=== PATIENT | male | born 1935 | race Caucasian/White ===

== ENCOUNTER 2019-04-23 16:50 | Emergency (ER) | payer OTHER ==
[~2019-04-23] VITALS: Ht 172.7 cm; Wt 74.4 kg
--- NOTE | 2019-04-23 16:50 | NUR ---
Pt biba taken to bed 4
[2019-04-23 16:51] VITALS: BP 146/82
--- NOTE | 2019-04-23 17:04 | NUR ---
PT C/O FACIAL BURNING X2 DAYS. STAFF AT [facility] NOTED A FLUSHED FACE AND YELLOW DISCHARGE WEEPING FROM FACE 40 MIN AGO. NO BLISTERS TO FACE. NO N/V/D. PT STATES HE HAS NOT TAKEN ANY NEW MEDICATIONS. PT SITTING IN BED, RELAXED. AIRWAY NOT COMPROMISED. MEDHX: BIPOLAR, SCHIZOPHRENIA, GERD, HYPERLIPIDEMIA, HTN, COPD, ANEMIA ALLERGIES: DENIES
[2019-04-23] MEDS ORDERED: KETOROLAC 60 MG/2 ML VIAL IM ONE (17:05)
--- NOTE | 2019-04-23 17:42 | NUR ---
X-RAY COMPLETED AT BEDSIDE
--- NOTE | 2019-04-23 18:31 | NUR ---
PT RESTING IN BED W/ EYES CLOSED
--- NOTE | 2019-04-23 19:26 | NUR ---
TRANSFER OF CARE AND REPORT GIVEN FROM [facility]
--- NOTE | 2019-04-23 19:46 | NUR ---
Patient discharged with v/s stable. Written and verbal after care instructions given and explained. Patient alert, oriented and verbalized understanding of instructions. Wheel Chair Assisted with to PT BROTHER'S car. All questions addressed prior to discharge. ID band removed. Patient advised to follow up with PMD. Rx of MOTRIN AND BENADRYL WAS given. Patient educated on indication of medication including possible reaction and side effects. Opportunity to ask questions provided and answered.
[2019-04-23 19:48] VITALS: BP 103/58
== END 2019-04-23 19:46 | disposition home or self-care (01) ==
LOC: MED 16:50
DX: T20.10XA Burn of first degree of head, face, and neck, unspecified site, initial encounter (principal); X08.8XXA Exposure to other specified smoke, fire and flames, initial encounter; Y93.89 Activity, other specified; Y92.89 Other specified places as the place of occurrence of the external cause; Y99.8 Other external cause status
CPT/HCPCS: 71045; 96372; 99283; J1885; Q0092

== ENCOUNTER 2021-04-12 20:28 | Emergency (ER) | payer OTHER ==
[~2021-04-12] VITALS: Ht 185.4 cm; Wt 83.9 kg
[~2021-04-12 20:28] MED LIST: ALBU0.0912 IH; APIX2.5 PO; AZIT250T3 PO; DEC4 PO; DONE10TA10 PO; DOXA2TAB1 PO; FLUT1POW3 IH; MULT-2112 PO; MUPI2CRE22 TP; SENN-72 PO; SIMV10TA1 PO; SPIMDI INH; SYN.05 PO
--- NOTE | 2021-04-12 20:28 | NUR ---
PT CHIKIS BLS. TAKEN TO BED 2
[2021-04-12 20:30] VITALS: BP 122/68
--- NOTE | 2021-04-12 20:41 | NUR ---
85 Y/O MALE PT CHIKIS FROM [facility] C/O A FALL AT 4AM IN TH MORNING. EMS STATES, "PER THE FACILITY HE HAS AN UNWITNESSED FALL AT 4AM IN THE MORNING. PT HAS A BRUISE ON THE RT EYE." DENIES N/V/D; SKIN IS PINK/WARM/DRY; AAOX4 WITH EVEN AND STEADY GAIT; LUNGS CLEAR BL; HR EVEN AND REGULAR; PT DENIES ANY FEVER, CP, SOB, OR COUGH AT THIS TIME; PATIENT STATES PAIN OF 0/10 AT THIS TIME; VSS; PATIENT POSITIONED FOR COMFORT; HOB ELEVATED; BEDRAILS UP X2; BED DOWN. ER MD MADE AWARE OF PT STATUS. PMH: DEMENTIA, HTN, HLD, NKA
--- NOTE | 2021-04-12 22:56 | NUR ---
REPOSITIONED FOR COMFORT, PT. LAYING IN SUPINE POSITION. VOICES NO COMPLAINTS AT THIS TIME. HR EVEN AND REGULAR.
--- NOTE | 2021-04-13 04:52 | NUR ---
Patient appears to be resting comfortably in bed. Vital Signs within normal limits. Respirations even and unlabored.
--- NOTE | 2021-04-13 07:23 | NUR ---
GIVEN REPORT TO ALEXA CALDERON, FOR CONTINUITY OF CARE
--- NOTE | 2021-04-13 08:30 | NUR ---
PT RESTING WITH EYES CLOSED, BREATHING EVEN AND UNLABORED. NO DISTRESS NOTED.
--- NOTE | 2021-04-13 09:35 | NUR ---
CALLED MABEL REGARDING PT PICKUP - STATES HE WILL BE HERE AROUND 11AM
[2021-04-13 11:30] VITALS: BP 116/61
--- NOTE | 2021-04-13 11:30 | NUR ---
Patient discharged with v/s stable. Written and verbal after care instructions about head injury given and explained. Patient verbalized understanding. Ambulatory with steady gait. All questions addressed prior to discharge. Advised to follow up with PMD.
== END 2021-04-13 11:30 | disposition home or self-care (01) ==
LOC: MED 20:28
DX: S09.90XA Unspecified injury of head, initial encounter (principal); F03.90 Unspecified dementia, unspecified severity, without behavioral disturbance, psychotic disturbance, mood disturbance, and anxiety; W19.XXXA Unspecified fall, initial encounter; Y93.89 Activity, other specified; Y92.89 Other specified places as the place of occurrence of the external cause; Y99.8 Other external cause status; J44.9 Chronic obstructive pulmonary disease, unspecified; K21.9 Gastro-esophageal reflux disease without esophagitis; Z79.899 Other long term (current) drug therapy; I10 Essential (primary) hypertension
CPT/HCPCS: 70450; 70486; 72125; 99285

== ENCOUNTER 2022-08-06 21:57 | Inpatient (IN) | payer OTHER ==
[~2022-08-06] VITALS: Ht 172.7 cm; Wt 68.0 kg
[~2022-08-06 21:57] MED LIST changes: +SIMV-371 PO; -SIMV10TA1 PO
--- NOTE | 2022-08-06 21:59 | NUR ---
PT CHIKIS LARAS. TAKEN TO BED 4
[2022-08-06 22:06] VITALS: BP 120/76
--- NOTE | 2022-08-06 22:30 | NUR ---
Patient lying in bed, A/Ox3, chest rise and fall symmetrical, no s/s of distress.
--- NOTE | 2022-08-06 22:42 | NUR ---
X-Ray at bedside.
[2022-08-06 22:48] LABS: BASOPHILS # (AUTO) 0.1 K/uL (0.00-0.22); BASOPHILS % (AUTO) 0.5 % (0.0-2.0); EOSINOPHILS # (AUTO) 0.1 K/uL (0-0.4); EOSINOPHILS % (AUTO) 0.8 % (0.0-4.0); HEMATOCRIT 42.7 % (36-52); HEMOGLOBIN 14.1 g/dL (12.0-18.0); LYMPHOCYTES # (AUTO) 0.9 K/uL (2.0-11.5); LYMPHOCYTES % (AUTO) 6.1 % (20.5-51.1); MEAN CORPUSCULAR HEMOGLOBIN 30 pg (27-31); MEAN CORPUSCULAR HGB CONC 33 g/dL (33-37); MEAN CORPUSCULAR VOLUME 92.1 fL (80-94); MONOCYTES # (AUTO) 1.6 K/uL (0.8-1.0); MONOCYTES % (AUTO) 10.6 % (1.7-9.3); NEUTROPHILS # (AUTO) 12.3 K/uL (1.8-7.7); PLATELET COUNT (AUTO) 158 K/uL (140-450); RED BLOOD CELL COUNT(AUTO) 4.64 MIL/uL (4.20-6.10); RED CELL DISTRIBUTION WIDTH 13.6 % (11.6-13.7)
[2022-08-06 23:10] LABS: ALBUMIN 2.8 g/dL (3.4-5.0); ANION GAP 8.5 (8-16); ASPARTATE AMINOTRANSFERASE 24 U/L (15-37); CARBON DIOXIDE 33.4 mmol/L (21-32); CHLORIDE 105 mmol/L (98-107); CREATININE 1.2 mg/dL (0.6-1.3); GLUCOSE 139 mg/dL (74-106); POTASSIUM 3.9 mmol/L (3.5-5.1); SODIUM SERUM 143 mmol/L (136-145); TOTAL BILIRUBIN 0.9 mg/dL (0.0-1.0); UREA NITROGEN, BLOOD 30 mg/dL (7-18)
[2022-08-06 23:14] LABS: LIPASE 109 U/L (73-393)
--- NOTE | 2022-08-06 23:37 | NUR ---
Dr. Warren examining patient.
[2022-08-06] MEDS ORDERED: MORPHINE SULFATE 4 MG/ML SYR IVP ONE (23:50)
[2022-08-06] MEDS ORDERED: LIDOCAINE 5% 1 EA PATCH TP ONE (23:55)
--- NOTE | 2022-08-07 00:05 | NUR ---
Patient lying in bed, A/Ox3, chest rise and fall symmetrical, no s/s of distress.
[2022-08-07] MEDS ORDERED: NACL 0.9% 1,000 ML IV SCH (00:15)
--- NOTE | 2022-08-07 00:16 | NUR ---
PT RETURN FROM RADIOLOGY
--- NOTE | 2022-08-07 00:20 | NUR ---
Patient lying in bed, A/Ox4, chest rise and fall symmetrical, no s/s of distress. Addendum: 08/07/22 at 0230 by [email or web address] Patient lying in bed, A/Ox3, chest rise and fall symmetrical, no s/s of distress.
--- NOTE | 2022-08-07 02:15 | NUR ---
Patient lying in bed, A/Ox3, chest rise and fall symmetrical, no s/s of distress.
--- NOTE | 2022-08-07 02:31 | NUR ---
Patient will be admitted to care of Quita CALDERON. Admited to Telemetry. Will go to room 107A. Belongings list completed. Report to Quita CALDERON, Quita CALDERON verbalized understanding of report, no further questions.
--- NOTE | 2022-08-07 02:43 | NUR ---
RECEIVED ENDORSEMENT FROM DAY SHIFT NURSE FOR CONTINUITY OF CARE. PT CAME IN VIA GURNEY WITH MUSICAL INSTRUMENT MAKER OR REPAIRER ESCORT. PT IS AWAKE, ALERT AND CONFUSE. PT WITH CHIEF COMPLAINTS OF LEFT INFERIOR CHEST WALL PAIN WITH SOB, DIAGNOSIS OF COPD. PT HAS HISTORY NOF DEMENTIA, COPD, ANEMIA, HYPOTHYROIDISM, HTN AND HYPOLIPIDEMIA. NO KNOWN ALLERGY. PT IS FULL CODE. PT IS ON ROOM AIR AND IS ON REGULAR DIET. IV SITE IS RAC 18G, INFUSING WELL OF NS 100ML/HR. SKIN NINTACT, NO SKIN PROBLEM. PT IS TELEMETRY.
[2022-08-07 04:00] VITALS: BP 117/57
--- NOTE | 2022-08-07 04:10 | NUR ---
PT IS CONFUSE, PT ANSWER QUESTION WITH NOT CONNECTED ANSWER. PT IS STILL AWAKE. ENCOURAGE PT TO SLEEP. REPOSITIONED PT TO A COMFORTABLE SITE.
--- NOTE | 2022-08-07 05:30 | NUR ---
PT IS ASLEEP. NO SOB OR DISTRESS.
--- NOTE | 2022-08-07 07:00 | NUR ---
PT IS SLEEPING AND IS ON STABLE CONDITION. ALL SAFETY MEASURES ARE IN PLACE. WILL ENDORSE TO DAY SHIFT NURSE FOR CONTINUITY OF CARE.
[2022-08-07 08:00] VITALS: BP 115/61
[2022-08-07] MEDS ORDERED: DOCUSATE SODIUM 100 MG GELCAP PO PRN (08:10)
[2022-08-07] MEDS ORDERED: ACETAMINOPHEN 325 MG TAB PO PRN (08:10)
[2022-08-07] MEDS ORDERED: guaiFENesin DM 200/20 MG-10 ML 10 ML UDC PO PRN (08:10)
[2022-08-07] MEDS ORDERED: POTASSIUM CHLORIDE 10 MEQ TABER PO PRN (08:10)
[2022-08-07] MEDS ORDERED: ONDANSETRON 4 MG/2 ML VIAL IM/IVP PRN (08:10)
[2022-08-07] MEDS: NACL 0.9% 1,000 ML IV SCH (08:35)
[2022-08-07] MEDS: PANTOPRAZOLE 40 MG TABEC PO SCH (08:43)
[2022-08-07 10:10] LABS: CHOL/HDL RATIO 1.7 (1-4.5); FREE T4 (FREE THYROXINE) 1.29 ng/dL (0.76-1.46); MAGNESIUM 1.8 mg/dL (1.8-2.4); PHOSPHORUS 2.8 mg/dL (2.5-4.9); THYROID STIMULATING HORMONE 1.63 uIU/mL (0.34-3.74)
[2022-08-07 10:16] LABS: PROTHROMBIN TIME 10.6 secs (10.8-13.4)
[2022-08-07] MEDS: PIPERACILLIN/TAZOBACTAM 3.375 GM in DEXTROSE 5% 50 ML IV SCH ×2 (11:49→17:35)
[2022-08-07 12:00] VITALS: BP 124/69
[2022-08-07 16:00] VITALS: BP 116/74
[2022-08-07 20:00] VITALS: BP 125/66
[2022-08-07 20:16] LABS: APPEARANCE,URINE SL CLOUDY (CLEAR); BILIRUBIN,URINE 1+ (NEGATIVE); BLOOD, URINE 3+ (NEGATIVE); COLOR,URINE RED (YELLOW); LEUKOCYTE ESTERASE ,URINE TRACE (NEGATIVE); NITRITE, URINE POSITIVE (NEGATIVE); PH,URINE 5.5 (5.0-9.0); UGLUCOSE NEGATIVE (NEGATIVE)
[2022-08-07 20:25] LABS: RBC,URINE 20-50 /HPF (0-5)
[2022-08-07 20:26] LABS: OTHER CASTS, URINE None Seen /LPF (None Seen)
[2022-08-07] MEDS: SIMVASTATIN 10 MG TAB PO SCH (21:16)
--- NOTE | 2022-08-07 21:17 | NUR ---
ADMINISTERED SCHEDULED MEDICATION. TOLERATED WELL.
[2022-08-08] VITALS: BP 120/60
[2022-08-08] MEDS: PIPERACILLIN/TAZOBACTAM 3.375 GM in DEXTROSE 5% 50 ML IV SCH ×5 (00:36→23:44)
[2022-08-08] MEDS: ZOLPIDEM 5 MG TAB PO PRN ×2 (00:42→20:55)
[2022-08-08] MEDS: NACL 0.9% 1,000 ML IV SCH ×2 (00:50→18:02)
[2022-08-08] MEDS: HYDROcodone/APAP 7.5/325 MG 1 TAB PO PRN ×2 (05:33→16:34)
[2022-08-08] MEDS: LEVOTHYROXINE 0.05 MG TAB PO SCH (05:33)
[2022-08-08 06:28] LABS: BASOPHILS % (AUTO) 0.4 % (0.0-2.0); EOSINOPHILS # (AUTO) 0.7 K/uL (0-0.4); EOSINOPHILS % (AUTO) 5.9 % (0.0-4.0); HEMATOCRIT 40.5 % (36-52); HEMOGLOBIN 13.3 g/dL (12.0-18.0); LYMPHOCYTES # (AUTO) 1.3 K/uL (2.0-11.5); LYMPHOCYTES % (AUTO) 11.1 % (20.5-51.1); MEAN CORPUSCULAR HEMOGLOBIN 31 pg (27-31); MEAN CORPUSCULAR HGB CONC 33 g/dL (33-37); MEAN CORPUSCULAR VOLUME 92.7 fL (80-94); MONOCYTES # (AUTO) 1.5 K/uL (0.8-1.0); MONOCYTES % (AUTO) 13.1 % (1.7-9.3); NEUTROPHILS # (AUTO) 8.2 K/uL (1.8-7.7); NEUTROPHILS % (AUTO) 69.5 % (42.2-75.2); PLATELET COUNT (AUTO) 153 K/uL (140-450); RED BLOOD CELL COUNT(AUTO) 4.37 MIL/uL (4.20-6.10); RED CELL DISTRIBUTION WIDTH 13.8 % (11.6-13.7); WHITE BLOOD COUNT (AUTO) 11.8 K/uL (4.8-10.8)
[2022-08-08 06:45] LABS: ANION GAP 10.6 (8-16); CARBON DIOXIDE 31.5 mmol/L (21-32); CHLORIDE 106 mmol/L (98-107); CREATININE 1.2 mg/dL (0.6-1.3); GLUCOSE 103 mg/dL (74-106); POTASSIUM 4.1 mmol/L (3.5-5.1); SODIUM SERUM 144 mmol/L (136-145); UREA NITROGEN, BLOOD 24 mg/dL (7-18)
--- NOTE | 2022-08-08 07:23 | NUR ---
GAVE REPORT TO DAY SHIFT NURSE FOR CONTINUITY OF CARE.
--- NOTE | 2022-08-08 07:24 | NUR ---
RECEIVED REPORT FROM CLEANING STAFF SUPERVISOR NURSE SOHAIL FOR CONTINUITY OF CARE. PT SLEEPING, EASILY AROUSABLE BY VERBAL STIMULI. RESPIRATIONS EVEN AND UNLABORED ON 2L NC. NO DISTRESS NOTED. CALL LIGHT WITHIN REACH. SAFETY PRECAUTIONS IN PLACE.
--- NOTE | 2022-08-08 07:54 | NUR ---
ENDORSED PT TO RN ADZE. PT IS STABLE.
[2022-08-08 08:00] VITALS: BP 123/55
[2022-08-08 08:07] LABS: T4 (THYROXINE) 8.6 ug/dL (4.5-12.0)
[2022-08-08] MEDS: PANTOPRAZOLE 40 MG TABEC PO SCH (09:55)
--- NOTE | 2022-08-08 12:10 | NUR ---
PATIENT HAS BEEN SCREENED AND CATEGORIZED MODERATE NUTRITION RISK. PATIENT WILL BE SEEN WITHIN 3-5 DAYS OF ADMISSION. 08/10/2212/21/[address]
[2022-08-08 16:00] VITALS: BP 119/61
--- NOTE | 2022-08-08 19:25 | NUR ---
RECEIVED PATIENT IN BED RESTING COMFORTABLY WITH O2 AT 4L NC SATING 93%. NO DISTRESS. DENIES PAIN. IVF NS INFUSING AT 60 ML/HR. ALL SAFETY MEASURES IN PLACE. CALL LIGHT WITHIN REACH.
[2022-08-08] MEDS: SIMVASTATIN 10 MG TAB PO SCH (20:19)
--- NOTE | 2022-08-08 20:19 | NUR ---
ADMINISTERED SCHEDULED MEDICATION. WELL TOLERATED.
--- NOTE | 2022-08-08 23:44 | NUR ---
ZOSYN ADMINISTERED SCHEDULED.
[2022-08-09] VITALS: BP 121/58
[2022-08-09] MEDS: HYDROcodone/APAP 7.5/325 MG 1 TAB PO PRN (03:35)
--- NOTE | 2022-08-09 03:35 | NUR ---
COMPLAINED OF MODERATE PAIN, MEDICATED WITH NORCO PRN.
[2022-08-09] MEDS: PIPERACILLIN/TAZOBACTAM 3.375 GM in DEXTROSE 5% 50 ML IV SCH ×4 (05:26→23:42)
[2022-08-09] MEDS: LEVOTHYROXINE 0.05 MG TAB PO SCH (06:30)
[2022-08-09 07:15] LABS: BASOPHILS # (AUTO) 0.1 K/uL (0.00-0.22); BASOPHILS % (AUTO) 0.6 % (0.0-2.0); EOSINOPHILS # (AUTO) 0.7 K/uL (0-0.4); HEMOGLOBIN 12.4 g/dL (12.0-18.0); LYMPHOCYTES # (AUTO) 1.3 K/uL (2.0-11.5); LYMPHOCYTES % (AUTO) 12.5 % (20.5-51.1); MEAN CORPUSCULAR HEMOGLOBIN 31 pg (27-31); MEAN CORPUSCULAR HGB CONC 34 g/dL (33-37); MEAN CORPUSCULAR VOLUME 92.7 fL (80-94); MONOCYTES # (AUTO) 1.2 K/uL (0.8-1.0); NEUTROPHILS # (AUTO) 7.3 K/uL (1.8-7.7); NEUTROPHILS % (AUTO) 68.9 % (42.2-75.2); PLATELET COUNT (AUTO) 144 K/uL (140-450); RED BLOOD CELL COUNT(AUTO) 3.99 MIL/uL (4.20-6.10); RED CELL DISTRIBUTION WIDTH 13.4 % (11.6-13.7); WHITE BLOOD COUNT (AUTO) 10.5 K/uL (4.8-10.8)
--- NOTE | 2022-08-09 07:28 | NUR ---
ENDORSED PATIENT TO DAY SHIFT NURSE MELE FOR CONTINUITY OF CARE.
[2022-08-09 07:36] LABS: ANION GAP 12.2 (8-16); CARBON DIOXIDE 28.8 mmol/L (21-32); CHLORIDE 107 mmol/L (98-107); CREATININE 1.2 mg/dL (0.6-1.3); GLUCOSE 86 mg/dL (74-106); SODIUM SERUM 144 mmol/L (136-145); UREA NITROGEN, BLOOD 24 mg/dL (7-18)
--- NOTE | 2022-08-09 07:36 | NUR ---
GOT REPORT FROM THE NIGHT NURSE, PT SLEEPING,IV IS INFUSING ORDERED.NO SOB. [id number]
[2022-08-09] MEDS: PANTOPRAZOLE 40 MG TABEC PO SCH (08:22)
[2022-08-09] MEDS: MORPHINE SULFATE 2 MG/ML SYR IVP PRN ×3 (08:53→17:01)
[2022-08-09 09:41] VITALS: BP 134/56
[2022-08-09] MEDS: NACL 0.9% 1,000 ML IV SCH (10:45)
--- NOTE | 2022-08-09 11:12 | NUR ---
PT FOUND ON 4 L O2 SAT WAS 98 %. DECREASED FLOW TO 2 LPM. THERE IS NO ORDER FOR OXYGEN SO WILL HAVE ONE PUT IN. SPOKE WITH NURSE. SHE HAD INCREASED TO 4 L BECAUSE SAT WAS 91%. 91% FOR A COPD PT IS OK AND 98% IS TOO HIGH, HENCE THE DECREASE TO 2 L. PT WAS AWAKE AND ABLE TO COMMUNICATE. HE WAS A BIT CONFUSED. PATIENT WAS RESTING COMFORTABLY AND NO DISTRESS WAS NOTED. HE SAID HE HAD NO SOB.
--- NOTE | 2022-08-09 11:48 | NUR ---
ADDED ORDER FOR O2 SINCE PT STATED ON 2L OXYGEN AT HOME.
[2022-08-09 16:00] VITALS: BP 134/56
--- NOTE | 2022-08-09 19:30 | NUR ---
RECEIVED REPORT FROM DAY SHIFT NURSE MELE FOR CONTINUITY OF CARE. PT AWAKE, SITTING IN BED. RESPIRATIONS EVEN AND UNLABORED ON 2L NC. NO DISTRESS NOTED. NO C/O OF PAIN. SKIN INTACT, WARM AND DRY TO TOUCH. IV SITE ON LFA 20G, INFUSING IVF. CALL LIGHT WITHIN REACH. SAFETY PRECAUTIONS IN PLACE.
--- NOTE | 2022-08-09 20:00 | NUR ---
Patient's Plan of Care was discussed and reviewed with XIOMARA LEWIS
[2022-08-09] MEDS: SIMVASTATIN 10 MG TAB PO SCH (21:03)
--- NOTE | 2022-08-09 21:05 | NUR ---
ADMINISTERED DUE MEDS. PT TOLERATED WELL.
--- NOTE | 2022-08-09 23:49 | NUR ---
ADMINISTERED 0000 MEDICATION ZOSYN IVPB. IVPB STARTED SUCCESSFULLY WITHOUT ANY ISSUES. BEFORE ADMINISTRATION, DISCUSSED PATIENT'S CARE WITH XIOMARA LEWIS TO ENSURE PATIENT'S A&O STATUS AND IV ACCESS. PATIENT WAS AWAKE WHEN I ENTERED THE ROOM. EXPLAINED TO THE PATIENT THAT I WAS ADMINISTERING AN ANTIBIOTIC TO FIGHT OFF INFECTION VIA IV, AND ASKED IF HE HAD ANY QUESTIONS. THE PATIENT SAID HE HAD NO QUESTIONS AND GAVE ME PERMISSION TO START IVPB. I EXPLAINED TO THE PATIENT THAT THE ANTIBIOTIC SHOULD RUN FOR ABOUT 30 MINUTES. HE SAID THAT WAS FINE. PATIENT LYING IN SEMI-FOWLERS POSITION. BREATHING WAS NORMAL WITH SYMMETRICAL RISE AND FALL OF CHEST. WILL CONTINUE TO OBSERVE PATIENT.
[2022-08-10] VITALS: BP 133/61
[2022-08-10] MEDS: NACL 0.9% 1,000 ML IV SCH ×2 (01:22→19:30)
--- NOTE | 2022-08-10 03:19 | NUR ---
PT SLEEPING. NO DISTRESS NOTED WITH VISIBLE RISE AND CHEST FALL. SAFETY PRECAUTIONS IN PLACE.
[2022-08-10] MEDS: PIPERACILLIN/TAZOBACTAM 3.375 GM in DEXTROSE 5% 50 ML IV SCH ×4 (05:20→23:19)
--- NOTE | 2022-08-10 05:26 | NUR ---
ADMINISTERED 0600 MEDICATION ZOSYN IVPB. IVPB STARTED SUCCESSFULLY WITHOUT ANY ISSUES. PATIENT WAS AWAKE WHEN I ENTERED THE ROOM. INFORMED PATIENT THAT I WAS ADMINISTERING ANOTHER ANTIBIOTIC VIA HIS IV AND THAT IT SHOULD TAKE ABOUT 30 MINUTES TO RUN. PATIENT SAID OKAY. PATIENT'S BREATHING WAS NORMAL WITH SYMMETRICAL RISE AND FALL OF CHEST. WILL CONTINUE TO OBSERVE PATIENT.
[2022-08-10] MEDS: LEVOTHYROXINE 0.05 MG TAB PO SCH (05:58)
[2022-08-10] MEDS: HYDROcodone/APAP 7.5/325 MG 1 TAB PO PRN (06:45)
--- NOTE | 2022-08-10 06:47 | NUR ---
WAS INFORMED BY XIOMARA BERKOWITZ THAT PATIENT IS IN PAIN AND IS REQUESTING PAIN MEDICATION. PATIENT'S BP WAS 151/64 AND HR WAS 44. DECIDED NOT TO ADMINISTER MORPHINE DUE TO PATIENT'S HR. CHECKED PATIENT'S CHART AND SAW HE HAD NORCO ON FILE. ADMINISTERED NORCO TO PATIENT. PATIENT TOLERATED WELL. INFORMED HEMATOLOGY ONCOLOGY CONSULTANT THAT NORCO WAS GIVEN, AND ASKED HER TO INFORM DAY SHIFT NURSE TO KEEP AN EYE ON THE PATIENT'S HR.
--- NOTE | 2022-08-10 06:51 | NUR ---
NOTED BLOOD IN THE URINE WHEN DIAPER WAS CHANGED. PT STATED NO PAIN WHEN URINATING. DR. KERR MADE AWARE. AWAITING FOR RESPONSE. WILL ENDORSE TO DAY SHIFT NURSE.
--- NOTE | 2022-08-10 07:04 | NUR ---
GAVE BEDSIDE REPORT TO DAY SHIFT RN MELE FOR CONTINUITY OF CARE. ENDORSED TO FOLLOW UP WITH MD REGARDING BLOOD IN THE URINE. MD WAS INFORMED BUT NO RESPONSE YET AT THIS TIME. ALL NEEDS MET THROUGHOUT SHIFT. PT IS STABLE.
[2022-08-10 07:18] LABS: ANION GAP 8.5 (8-16); CARBON DIOXIDE 28.7 mmol/L (21-32); CHLORIDE 105 mmol/L (98-107); CREATININE 1.1 mg/dL (0.6-1.3); GLUCOSE 80 mg/dL (74-106); POTASSIUM 4.2 mmol/L (3.5-5.1); SODIUM SERUM 138 mmol/L (136-145); UREA NITROGEN, BLOOD 19 mg/dL (7-18)
[2022-08-10 07:23] LABS: BASOPHILS # (AUTO) 0.1 K/uL (0.00-0.22); BASOPHILS % (AUTO) 0.7 % (0.0-2.0); EOSINOPHILS # (AUTO) 0.7 K/uL (0-0.4); EOSINOPHILS % (AUTO) 6.8 % (0.0-4.0); HEMATOCRIT 40.2 % (36-52); HEMOGLOBIN 13.5 g/dL (12.0-18.0); LYMPHOCYTES # (AUTO) 1.2 K/uL (2.0-11.5); LYMPHOCYTES % (AUTO) 11.1 % (20.5-51.1); MEAN CORPUSCULAR HEMOGLOBIN 31 pg (27-31); MEAN CORPUSCULAR HGB CONC 34 g/dL (33-37); MEAN CORPUSCULAR VOLUME 92.1 fL (80-94); MONOCYTES # (AUTO) 1.2 K/uL (0.8-1.0); MONOCYTES % (AUTO) 11.2 % (1.7-9.3); NEUTROPHILS # (AUTO) 7.6 K/uL (1.8-7.7); NEUTROPHILS % (AUTO) 70.2 % (42.2-75.2); PLATELET COUNT (AUTO) 170 K/uL (140-450); RED BLOOD CELL COUNT(AUTO) 4.37 MIL/uL (4.20-6.10); RED CELL DISTRIBUTION WIDTH 13.3 % (11.6-13.7); WHITE BLOOD COUNT (AUTO) 10.8 K/uL (4.8-10.8)
--- NOTE | 2022-08-10 07:39 | NUR ---
GOT REPORT FROM THE NIGHT NURSE PT IS AWAKE DISCUSSED POC.[id number]
[2022-08-10 08:00] VITALS: BP 148/92
[2022-08-10] MEDS: PANTOPRAZOLE 40 MG TABEC PO SCH (08:44)
[2022-08-10] MEDS ORDERED: AMOX-999 PO (10:08)
[2022-08-10] MEDS: MORPHINE SULFATE 2 MG/ML SYR IVP PRN ×3 (15:39→21:24)
--- NOTE | 2022-08-10 15:55 | NUR ---
FLY CATHETER INSERTED WA MD ORDER. BLOODY URINE COMING OUT IN THE COUCH BAG.[id number]
[2022-08-10 16:00] VITALS: BP 130/66
--- NOTE | 2022-08-10 16:20 | NUR ---
FLUSHED THE CATHETER WITH NS UNTIL IT IS CLEAR. WILL CONTINUE TO MONITOR.[id number]
--- NOTE | 2022-08-10 17:25 | NUR ---
DC PLANNING: PATIENT HAS A DC ORDER TO GO BACK TO [facility] FAXED ALL PAPER WORK SPOKE WITH JODI PT CAN GO TO ROOM 7B # TO GIVE REPORT [phone] ARRANGED TRANSPORT WITH [facility]. AWAITING FOR ETA CM TO FOLLOW Addendum: 08/10/22 at 1735 by Erin Lloyd RN DC PLANNING: PER MELE CALDERONOSTEOPATHY DOCTOR CANCELED BECAUSE OF ACTIVE BLEEDING. CM TO FOLLOW Addendum: 08/12/22 at 1209 by Erin Lloyd RN DC PLANNING: [facility] THE DC ORDER [facility] AWAIT[facility] FOR BED NUMBER. CM TO FOLLOW
--- NOTE | 2022-08-10 17:45 | NUR ---
FLASHED AGAIN THE CATHETER UNTIL THE BLOOD CLEAR OUT. MONITORING PT FOR ANY DISCOMFORT AND ANY CHANGE.[id number]
--- NOTE | 2022-08-10 19:30 | NUR ---
RECEIVED REPORT FROM DAY SHIFT NURSE MELE FOR CONTINUITY OF CARE. PT AWAKE IN BED. ON 2L NC. NO C/O OF PAIN AT THIS TIME. NO DISTRESS NOTED. PT WITH COUCH CATHETER, INTACT, DRAINING BLOODY URINE WITH CLOTS. WILL CONTINUE FLUSHING WITH NS UNTIL URINE IS CLEAR. CALL LIGHT WITHIN REACH. SAFETY PRECAUTIONS IN PLACE.
--- NOTE | 2022-08-10 19:55 | NUR ---
Patient's Plan of Care was discussed and reviewed with WOO SOLANO, CALL LIGHT IS WITHIN THE REACH, WILL CONTINUE TO MONITOR PATIENT.
[2022-08-10 20:00] VITALS: BP 123/57
[2022-08-10] MEDS: SIMVASTATIN 10 MG TAB PO SCH (20:30)
--- NOTE | 2022-08-10 20:30 | NUR ---
DUE MED ADMINISTERED. PT TOLERATED WELL.
--- NOTE | 2022-08-10 21:27 | NUR ---
PATIENT IS COMPLAINING OF PAIN ,GAVE IV MEDICATION PRN, VITAL SIGN IS WITHIN THE NORMAL RANGE, WILL CONTINUE TO MONITOR PATIENT.
--- NOTE | 2022-08-10 22:08 | NUR ---
COUCH CATHETER IRRIGATED. BLOOD CLOTS AND BRIGHT RED BLOOD IRRIGATED. PT WAS SO SENSITIVE, COMPLAINING OF PAIN.
--- NOTE | 2022-08-11 01:15 | NUR ---
IRRIGATED PT'S COUCH CATHETER. DRAINED BRIGHT RED WITH BLOOD CLOTS URINE. WILL INFORM MD. PT CLOSELY MONITORED.
[2022-08-11 04:00] VITALS: BP 109/56
--- NOTE | 2022-08-11 04:02 | NUR ---
IRRIGATED COUCH CATHETER. STILL HAVE A LOT OF BLOOD CLOTS AND BRIGHT RED BLOOD. PT COMPLAINING OF PAIN.
[2022-08-11] MEDS: PIPERACILLIN/TAZOBACTAM 3.375 GM in DEXTROSE 5% 50 ML IV SCH ×4 (05:16→23:33)
[2022-08-11] MEDS: LEVOTHYROXINE 0.05 MG TAB PO SCH (05:38)
--- NOTE | 2022-08-11 07:12 | NUR ---
GAVE BEDSIDE REPORT TO DAY SHIFT RN JUSTYN FOR CONTINUITY OF CARE. ALL NEEDS MET THROUGHOUT SHIFT. PT IS STABLE.
[2022-08-11 07:29] LABS: BASOPHILS # (AUTO) 0.1 K/uL (0.00-0.22); BASOPHILS % (AUTO) 0.5 % (0.0-2.0); EOSINOPHILS # (AUTO) 0.8 K/uL (0-0.4); EOSINOPHILS % (AUTO) 8.1 % (0.0-4.0); HEMATOCRIT 36.4 % (36-52); HEMOGLOBIN 12.3 g/dL (12.0-18.0); LYMPHOCYTES # (AUTO) 1.1 K/uL (2.0-11.5); LYMPHOCYTES % (AUTO) 10.4 % (20.5-51.1); MEAN CORPUSCULAR HEMOGLOBIN 31 pg (27-31); MEAN CORPUSCULAR HGB CONC 34 g/dL (33-37); MEAN CORPUSCULAR VOLUME 91.6 fL (80-94); MONOCYTES # (AUTO) 1.1 K/uL (0.8-1.0); NEUTROPHILS # (AUTO) 7.3 K/uL (1.8-7.7); PLATELET COUNT (AUTO) 156 K/uL (140-450); RED BLOOD CELL COUNT(AUTO) 3.98 MIL/uL (4.20-6.10); RED CELL DISTRIBUTION WIDTH 13.2 % (11.6-13.7); WHITE BLOOD COUNT (AUTO) 10.4 K/uL (4.8-10.8)
--- NOTE | 2022-08-11 07:56 | NUR ---
NURSES NOTE V RECEIVED PATIENT ON BED SIDE , A/OX3 , VSS , ON ROOM AIR , ON REGULAR DIET , WITH COUCH CATHETER COMPLAIN OF PAIN , HE NEED PAIN MEDS , WILL CONTINUE OBSERVE .
[2022-08-11 08:27] LABS: ANION GAP 11.2 (8-16); CARBON DIOXIDE 28.9 mmol/L (21-32); CHLORIDE 106 mmol/L (98-107); CREATININE 1.3 mg/dL (0.6-1.3); GLUCOSE 93 mg/dL (74-106); POTASSIUM 4.1 mmol/L (3.5-5.1); SODIUM SERUM 142 mmol/L (136-145); UREA NITROGEN, BLOOD 19 mg/dL (7-18)
[2022-08-11] MEDS: PANTOPRAZOLE 40 MG TABEC PO SCH (08:53)
[2022-08-11 09:53] VITALS: BP 120/57
[2022-08-11] MEDS: NACL 0.9% 1,000 ML IV SCH (11:36)
--- NOTE | 2022-08-11 12:00 | NUR ---
DISCHARGE PLANNING PATIENT IS AN 86 YEAR OLD MALE ADMITTED TO THE [facility]/ED ON 08/07/2022 DUE TO RIB, FRACTURE AND SHORTNESS OF BREATH. SW MEET WITH PATIENT AT BEDSIDE TO DISCUSS AND GATHER HIS COLLATERAL INFORMATION. PATIENT WAS AWAKE AND ALERT ABLE TO PROVIDE HIS OWN INFORMATION. PER PATIENT HE IS BEEN IN [facility] SINCE 02/09/2020 AND HAS NO A.D. IN PLACE, PATIENT DECLINED ALL INF.FORMS PROVIDED BY SW; REPORTED HAVING HIS BROTHER MABEL HOBBS HIS EMERGENCY CONTACT. PER PATIENT HE HAS BEEN CARE WELL IN SNF FACILITY AND WILL LIKE TO RETURN TO [facility] WHEN HE IS READY AND STABLE FOR DISCHARGE. SW THANKED PATIENT FOR THE INFORMATION PROVIDED AND ENDED THE MEETING. SW CALL [facility] AT SPOKE TO HOLLY FROM ADMINISTRATION TO DISCUSS AND CONFIRM PATIENT'S INFORMATION. PER HOLLY PATIENT IS BEEN IN THE SNF SINCE 02/09/2020 UNDER [facility] BED AND HE HAS ALL NEEDED CARE FROM FACILITY UNDER THE CARE OF MD. JEREMIAS QUAN. PATIENT IS ABLE TO RETURN TO THE FACILITY WHEN HE IS READY AND STABLE TO DISCHARGE. WILLIAM THANKED SNF/STAFF HOLLY FOR THE INFORMATION AND ENDED THE CALL. SW/SHANE WILL FOLLOW UP NEEDED.
--- NOTE | 2022-08-11 13:23 | NUR ---
NURSES NOTE I CALL AFTER RESULT OF US , HE SAID CHANGE THE COUCH CATHETER I CHANGE IT UNIN JOSE JUANAM MORE CLEAR THAN THE FIRST COUCH , DR AWARE THEY ORDER NEW US FOR HIM .
--- NOTE | 2022-08-11 16:10 | NUR ---
NURSES NOTE PATIENT A/OX4 , VSS , LEGAL BLIND ,ANURIC , NO BOWEL MOVEMENT , STILL WAITING FOR TRANSPORTATION TO PICKED HER UP TO TRANSFER TO SNF , STILL UNDER OBSERVE .
--- NOTE | 2022-08-11 16:10 | NUR ---
NURSES NOTE PATIENT A/OX2 , HE FORGETFUL , VSS , ON IV FLUID N/S RUINING 60CC/H , WITH COUCH CATHETER SKIN REDNESS ON SACRAL ARIA OPTIFORM APPLIED , NO COMPLAIN , WAITING TO DO US PELVIC TO CONFIRMED COUCH CATHETER PLACEMENT , STILL UNDER OBSERVE
[2022-08-11 16:47] VITALS: BP 157/67
--- NOTE | 2022-08-11 18:49 | NUR ---
AFTER THE US RESULT I SPOOK WITH DR KEHINDE TREVINO , HE SAID REMOVED THE COUCH AND REPLACE IT , THEN I REPLACE THE COUCH , KEEP UNDER OBSERVE .
--- NOTE | 2022-08-11 19:10 | NUR ---
REPORT GIVEN TO DARLING RN ADDRESS TO OBSERVE OUT PUT AND COUCH CATHETER ALL HER QUESTION ANSWER .
--- NOTE | 2022-08-11 19:11 | NUR ---
RECEIVED REPORT FROM MORNING SHIFT NURSE. PT IS LYING ON THE BED, BEDREST AND AOX2. PT IS ON 2L NC AND ON REGULAR DIET. PT HAS COUCH CATHETER AND HAS IV ON LEFT FOREARM GAUGE 22 RUNNING WITH NS AT 50ML/HR. PT SKIN IS INTACT BUT THERE'S REDNESS ON BUTTOCKS. PT DENIES PAIN AT THIS TIME. NO S/S OF RESPIRATORY DISTRESS NOTED. ALL SAFETY MEASURES IMPLEMENTED. BED IN LOW POSITION, BED WHEELS ON LOCK AND CALL LIGHT WITHIN REACH.
--- NOTE | 2022-08-11 19:46 | NUR ---
NOTIFIED DR. BATES IF HE WANTS TO CONTINUE THE ZOSYN AFTER THE DOSE DUE ON [address] BATES ORDER TO CONTINUE. ORDER WAS MADE AND CARRIED OUT.
[2022-08-11] MEDS: ALBUTEROL SULFATE/IPRATROPIU 3 ML SOL IH PRN ×2 (19:50→20:04)
[2022-08-11] MEDS: SIMVASTATIN 10 MG TAB PO SCH (20:20)
--- NOTE | 2022-08-11 20:20 | NUR ---
SCHEDULED AND PRESCRIBED MEDICATION WAS GIVEN TO PT PER MD ORDER. ALL SAFETY MEASURES IMPLEMENTED. BED IN LOW POSITION, BED WHEELS ON LOCK AND CALL LIGHT WITHIN REACH.
--- NOTE | 2022-08-11 22:00 | NUR ---
PT WAS GIVEN WARM BLANKET. PT DENIES PAIN AT THIS TIME. NO S/S OF RESPIRATORY DISTRESS NOTED. ALL SAFETY MEASURES IMPLEMENTED. BED IN LOW POSITION, BED WHEELS ON LOCK AND CALL LIGHT WITHIN REACH.
[2022-08-12] VITALS: BP 122/80
[2022-08-12] MEDS ORDERED: PIPERACILLIN/TAZOBACTAM 3.375 GM in DEXTROSE 5% 50 ML IV SCH ×2
--- NOTE | 2022-08-12 | NUR ---
PT IS ON SLEEP. CHEST RISE AND FALL SYMMETRICALLY NOTED. RESPIRATION IS EVEN AND UNLABORED. ALL SAFETY MEASURES IMPLEMENTED. BED IN LOW POSITION, BED WHEELS ON LOCK AND CALL LIGHT WITHIN REACH.
--- NOTE | 2022-08-12 02:00 | NUR ---
CHECKED THE PT, STILL ON SLEEP. CHEAT RISE AND FALL SYMMETRICALLY NOTED. RESPIRATION IS EVEN AND UNLABORED. ALL SAFETY MEASURES IMPLEMENTED. BED IN LOW POSITION, BED WHEELS ON LOCK AND CALL LIGHT WITHIN REACH.
--- NOTE | 2022-08-12 04:00 | NUR ---
MORNING CARE WAS DONE TO PT. CHANGED GOWN AND LINENS. ALL SAFETY MEASURES IMPLEMENTED. BED IN LOW POSITION, BED WHEELS ON LOCK AND CALL LIGHT WITHIN REACH.
[2022-08-12] MEDS: MORPHINE SULFATE 2 MG/ML SYR IVP PRN (04:34)
--- NOTE | 2022-08-12 04:34 | NUR ---
PT WAS GIVEN PRN PAIN MEDICATION DUE TO LEFT HIP PAIN WITH THE PAIN SCALE OF 7/10. ALL SAFETY MEASURES IMPLEMENTED. BED IN LOW POSITION, BED WHEELS ON LOCK AND CALL LIGHT WITHIN REACH.
[2022-08-12] MEDS: NACL 0.9% 1,000 ML IV SCH (04:50)
[2022-08-12] MEDS: PIPERACILLIN/TAZOBACTAM 3.375 GM in DEXTROSE 5% 50 ML IV SCH ×3 (05:36→17:33)
[2022-08-12] MEDS: LEVOTHYROXINE 0.05 MG TAB PO SCH (05:36)
--- NOTE | 2022-08-12 07:11 | NUR ---
PT IS STABLE. ENDORSED PT TO THE MORNING SHIFT NURSE FOR CONTINUITY OF CARE.
--- NOTE | 2022-08-12 07:15 | NUR ---
nurses note received patient at bed side , A/OX2 , vss ,with jackson catheter , safety on place , no complain at this time bed rest , on regular diet , still under observe .
[2022-08-12 08:16] LABS: BASOPHILS # (AUTO) 0.1 K/uL (0.00-0.22); BASOPHILS % (AUTO) 0.7 % (0.0-2.0); EOSINOPHILS # (AUTO) 0.8 K/uL (0-0.4); EOSINOPHILS % (AUTO) 8.8 % (0.0-4.0); HEMATOCRIT 35.1 % (36-52); HEMOGLOBIN 11.9 g/dL (12.0-18.0); LYMPHOCYTES # (AUTO) 1.2 K/uL (2.0-11.5); LYMPHOCYTES % (AUTO) 13.2 % (20.5-51.1); MEAN CORPUSCULAR HEMOGLOBIN 31 pg (27-31); MEAN CORPUSCULAR HGB CONC 34 g/dL (33-37); MEAN CORPUSCULAR VOLUME 91.8 fL (80-94); MONOCYTES # (AUTO) 1.1 K/uL (0.8-1.0); MONOCYTES % (AUTO) 12.3 % (1.7-9.3); PLATELET COUNT (AUTO) 157 K/uL (140-450); RED BLOOD CELL COUNT(AUTO) 3.83 MIL/uL (4.20-6.10); RED CELL DISTRIBUTION WIDTH 13.5 % (11.6-13.7); WHITE BLOOD COUNT (AUTO) 9.3 K/uL (4.8-10.8)
[2022-08-12 08:25] LABS: ANION GAP 11.7 (8-16); CARBON DIOXIDE 27.3 mmol/L (21-32); CHLORIDE 106 mmol/L (98-107); CREATININE 1.1 mg/dL (0.6-1.3); SODIUM SERUM 141 mmol/L (136-145); UREA NITROGEN, BLOOD 20 mg/dL (7-18)
[2022-08-12 08:36] LABS: GLUCOSE 85 mg/dL (74-106)
[2022-08-12] MEDS: PANTOPRAZOLE 40 MG TABEC PO SCH (08:51)
[2022-08-12 09:28] VITALS: BP 131/79
--- NOTE | 2022-08-12 11:20 | NUR ---
nurses note patient has discharge order , bladder scan done no ruin retention zero amount as bladder scan .
--- NOTE | 2022-08-12 11:37 | NUR ---
nurses note i called [facility] i give report to Kelsey CALDERON THEN I CALLED HIS BROTHER , MABEL ON HIS # [phone] TO INFORMED HIM PT HAS DISCHARGE ORDER HE CAN TRANSFER TO FACILITY , HE DON,T ANSWER , I LEFT MASSAGE FOR HIM AND THE PHONE NUMBER .
--- NOTE | 2022-08-12 12:47 | NUR ---
NURSES NOTE PATIENT A/OX3 , VSS , ON ROOM AIR , INCONTINENT, SKIN INTACT ON STANDER ISOLATION NO COMPLAIN AT THIS TIME ,SAFETY ON PLACE , BED IN LOWER POSITION , CALL LIGHT WITHIN REACH SIDE RAILS UP X3 , ON BED REST , ON REGULAR DIET ,HE CAN BR DISCHARGE TODAY , STILL UNDER OBSERVE .
--- NOTE | 2022-08-12 13:56 | NUR ---
DC PLANNING PT ACCEPTED TO ROOM 7B, FOLLOWING DR. DR HAMILTON, CALL REPORT NUMBER [phone]. [facility] REQUEST FORM FAXED TO [facility], . SW TO FOLLOW Addendum: 08/12/22 at 1546 by Abimael HANNA FIELDED CALL FROM HERMINIO WITH [facility]. HERMINIO REPORTS TRANSPORTATION ARRANGED WITH [facility] [phone], OPERATOR PREFINISH TIME 430PM, AUTH [id number]. ENDORSED TO PT NURSE.
--- NOTE | 2022-08-12 15:52 | NUR ---
PHYSICAL THERAPY CO-SIGN The Physical Therapy Progress Notes documented by Data Services Developer have been reviewed. Reviewed/Co-Signed by: Olive Ortiz Documentation Done by: LONI FITCH PTA Addendum: 08/12/22 at 1552 by Olive Ortiz PT Amended: Links added.
[2022-08-12 16:00] VITALS: BP 123/69
--- NOTE | 2022-08-12 16:12 | NUR ---
08/12/22 RD INITIAL ASSESSMENT COMPLETED PLEASE REFER TO NUTRITION ASSESSMENT UNDER CARE ACTIVITY FOR ESTIMATED NUTRITIONAL NEEDS. 1. CONTINUE REGULAR DIET TOLERATED 2. RECOMMEND ENSURE 1XDAY TO HELP INCREASE PO INTAKE -ENSURE 1XDAY PROVIDES 350 KCALS AND [address] TO FOLLOW-UP 3-5 DAYS, MODERATE RISK REVIEWED BY ANGEL OLIVER RD
--- NOTE | 2022-08-12 18:26 | NUR ---
NURSES NOTE PATIENT DISCHARGE NOW TO [facility] , IV REMOVED AND ARM BAND , VSS , ALL HIS DOCUMENT SIGN AND PLACE ON CHART , DISCHARGE PACKET EXPLAIN FOR HIM AND HIS BROTHER , VERBALIZED UNDERSTANDING OF GIVEN AND PICKED UP NOW BY EMS .
== END 2022-08-12 18:30 | DRG 871 ==
LOC: MED 21:57 → MTU 08-07 00:16
PROVIDERS: ADMIT Family Medicine; ATTEND Family Medicine
PROC: 0T9B70Z Drainage of Bladder with Drainage Device, Via Natural or Artificial Opening (ICD-10-PCS; principal; 2022-08-10)
DX: A41.9 Sepsis, unspecified organism (principal); E43 Unspecified severe protein-calorie malnutrition; J69.0 Pneumonitis due to inhalation of food and vomit; J96.01 Acute respiratory failure with hypoxia; S22.32XA Fracture of one rib, left side, initial encounter for closed fracture; J44.0 Chronic obstructive pulmonary disease with (acute) lower respiratory infection; F17.200 Nicotine dependence, unspecified, uncomplicated; Z20.822 Contact with and (suspected) exposure to COVID-19; E03.9 Hypothyroidism, unspecified; I10 Essential (primary) hypertension; F03.90 Unspecified dementia, unspecified severity, without behavioral disturbance, psychotic disturbance, mood disturbance, and anxiety; E78.5 Hyperlipidemia, unspecified; D64.9 Anemia, unspecified; Z68.22 Body mass index [BMI] 22.0-22.9, adult; T83.018A Breakdown (mechanical) of other urinary catheter, initial encounter; Y83.9 Surgical procedure, unspecified as the cause of abnormal reaction of the patient, or of later complication, without mention of misadventure at the time of the procedure; Y92.89 Other specified places as the place of occurrence of the external cause; W18.30XA Fall on same level, unspecified, initial encounter; Y93.9 Activity, unspecified; Y92.9 Unspecified place or not applicable; Y99.9 Unspecified external cause status; R31.9 Hematuria, unspecified
CPT/HCPCS: 36415; 70450; 71045; 71250; 76770; 76856; 80048; 80053; 81001; 82150; 83036; 83690; 83735; 83880; 84100; 84436; 84439; 84443; 84479; 84484; 85025; 85610; 85730; 87081; 87086; 93005; 94640; 97163-GP; 97530; 99285; J2270; J2543; J7060; Q0092

== ENCOUNTER 2023-12-13 18:33 | Inpatient (IN) | payer OTHER ==
[~2023-12-13] VITALS: Ht 182.9 cm; Wt 81.6 kg
[~2023-12-13 18:33] MED LIST changes: +AMOX-999 PO; -AZIT250T3 PO; -DEC4 PO; +DOXA-37 PO; -DOXA2TAB1 PO
[2023-12-13 18:35] VITALS: BP 114/69; PULSE 63; RESP 22; TEMP 97.8; O2SAT 98
[2023-12-13 19:15] VITALS: O2SAT 99
[2023-12-13 19:57] LABS: BASOPHILS # (AUTO) 0.1 K/uL (0.00-0.22); EOSINOPHILS # (AUTO) 0.6 K/uL (0-0.4); EOSINOPHILS % (AUTO) 7.2 % (0.0-4.0); HEMATOCRIT 39.6 % (36-52); HEMOGLOBIN 13.3 g/dL (12.0-18.0); LYMPHOCYTES # (AUTO) 1.4 K/uL (2.0-11.5); LYMPHOCYTES % (AUTO) 17.3 % (20.5-51.1); MEAN CORPUSCULAR HEMOGLOBIN 31 pg (27-31); MEAN CORPUSCULAR HGB CONC 34 g/dL (33-37); MEAN CORPUSCULAR VOLUME 91.4 fL (80-94); MONOCYTES # (AUTO) 1.1 K/uL (0.8-1.0); MONOCYTES % (AUTO) 12.7 % (1.7-9.3); NEUTROPHILS # (AUTO) 5.1 K/uL (1.8-7.7); NEUTROPHILS % (AUTO) 61.8 % (42.2-75.2); PLATELET COUNT (AUTO) 137 K/uL (140-450); RED BLOOD CELL COUNT(AUTO) 4.33 MIL/uL (4.20-6.10); RED CELL DISTRIBUTION WIDTH 14.2 % (11.6-13.7); WHITE BLOOD COUNT (AUTO) 8.3 K/uL (4.8-10.8)
[2023-12-13 20:20] LABS: ALANINE AMINOTRANSFERASE 7 U/L (12-78); ALBUMIN 2.7 g/dL (3.4-5.0); ALKALINE PHOSPHATASE 74 U/L (50-136); ANION GAP 7.4 (8-16); ASPARTATE AMINOTRANSFERASE 15 U/L (15-37); CALCIUM 8.2 mg/dL (8.5-10.1); CARBON DIOXIDE 34.2 mmol/L (21-32); CHLORIDE 106 mmol/L (98-107); CREATININE 1.2 mg/dL (0.6-1.3); GLUCOSE 114 mg/dL (74-106); POTASSIUM 4.6 mmol/L (3.5-5.1); SODIUM SERUM 143 mmol/L (136-145); TOTAL BILIRUBIN 0.5 mg/dL (0.0-1.0); TOTAL PROTEIN, SERUM 6.4 g/dL (6.4-8.2); UREA NITROGEN, BLOOD 31 mg/dL (7-18)
[2023-12-13] MEDS: IPRATROPIUM 0.02% 0.5 MG/2.5 ML NEBU INH ONE (20:52)
[2023-12-13] MEDS: ALBUTEROL 0.083% 2.5 MG/3 ML NEBU INH ONE (20:52)
[2023-12-13 20:53] VITALS: PULSE 53; PULSE 54; RESP 18; O2SAT 86; O2SAT 95; O2SAT 99
[2023-12-13 21:28] LABS: BLOOD GAS PCO2 57.6 mmHg (35-45); BLOOD GAS PH 7.348 (7.35-7.45)
[2023-12-13 21:29] LABS: BLOOD GAS BASE EXCESS 3.8 mmol/L (-2.0-2.0); BLOOD GAS HCO3 30.9 mmol/L (22-26); BLOOD GAS O2 SAT% 88.3 % (92.0-98.5); BLOOD GAS PO2 55.6 mmHg (75-100)
[2023-12-13] MEDS ORDERED: methylPREDNISolone SS 125 MG/2 ML VIAL ONE (21:31)
[2023-12-13] MEDS: methylPREDNISolone SS 125 MG/2 ML VIAL IVP ONE (21:35)
[2023-12-13 22:11] VITALS: PULSE 55; O2SAT 95
[2023-12-13] MEDS ORDERED: SCOP0.333 TP (22:43)
[2023-12-13] MEDS ORDERED: SPIMDI INH (22:43)
[2023-12-13] MEDS ORDERED: DONE10TA37 PO (22:43)
[2023-12-13] MEDS ORDERED: FLUT1POW3 IH (22:43)
[2023-12-13] MEDS ORDERED: APIX2.5 PO (22:43)
[2023-12-13] MEDS ORDERED: SYN.05 PO (22:43)
[2023-12-13] MEDS ORDERED: DOXA4TAB PO (22:43)
[2023-12-13] MEDS ORDERED: ALEN70TA PO (22:43)
[2023-12-13] MEDS ORDERED: MEMA5TAB15 PO (22:43)
[2023-12-13] MEDS ORDERED: ONDANSETRON 4 MG/2 ML VIAL IVP PRN (22:45)
[2023-12-13] MEDS ORDERED: HYDROcodone/APAP 5/325 MG 1 TAB TAB PO PRN (22:45)
[2023-12-13] MEDS ORDERED: ACETAMINOPHEN 325 MG TAB PO PRN (22:45)
[2023-12-13] MEDS ORDERED: MORPHINE SULFATE 2 MG/ML SYR IVP PRN (22:45)
[2023-12-13 23:51] VITALS: PULSE 53; RESP 18; O2SAT 94; O2SAT 97
[2023-12-13] MEDS: ALBUTEROL SULFATE/IPRATROPIU 3 ML SOL IH SCH (23:54)
[2023-12-14] VITALS (12 sets, daily range): BP systolic 113–119; BP diastolic 50–68; PULSE 50–73; RESP 16–20; TEMP 97.2–98.7; O2SAT 91–99
[2023-12-14] MEDS: LEVOFLOXACIN 500 MG/D5W PREMIX 100 ML IV SCH (00:01)
[2023-12-14] MEDS ORDERED: WATER STERILE 10 ML MC ONE (00:04)
[2023-12-14] MEDS: OLANZapine 10 MG VIAL IM ONE (00:06)
[2023-12-14] MEDS ORDERED: methylPREDNISolone SS 125 MG/2 ML VIAL IVP SCH (05:00)
[2023-12-14] MEDS: LEVOTHYROXINE 0.05 MG TAB PO SCH (06:30)
[2023-12-14 07:08] LABS: BASOPHILS % (AUTO) 0.1 % (0.0-2.0); EOSINOPHILS % (AUTO) 0.3 % (0.0-4.0); HEMATOCRIT 42.7 % (36-52); LYMPHOCYTES # (AUTO) 0.5 K/uL (2.0-11.5); LYMPHOCYTES % (AUTO) 7.3 % (20.5-51.1); MEAN CORPUSCULAR HEMOGLOBIN 30 pg (27-31); MEAN CORPUSCULAR HGB CONC 33 g/dL (33-37); MEAN CORPUSCULAR VOLUME 92.6 fL (80-94); MONOCYTES # (AUTO) 0.1 K/uL (0.8-1.0); MONOCYTES % (AUTO) 1.1 % (1.7-9.3); NEUTROPHILS % (AUTO) 91.2 % (42.2-75.2); PLATELET COUNT (AUTO) 136 K/uL (140-450); RED BLOOD CELL COUNT(AUTO) 4.62 MIL/uL (4.20-6.10); RED CELL DISTRIBUTION WIDTH 14.2 % (11.6-13.7); WHITE BLOOD COUNT (AUTO) 6.5 K/uL (4.8-10.8)
[2023-12-14 07:54] LABS: ALANINE AMINOTRANSFERASE 11 U/L (12-78); ALBUMIN 2.9 g/dL (3.4-5.0); ALKALINE PHOSPHATASE 74 U/L (50-136); ANION GAP 13.9 (8-16); ASPARTATE AMINOTRANSFERASE 19 U/L (15-37); CALCIUM 8.4 mg/dL (8.5-10.1); CARBON DIOXIDE 30.6 mmol/L (21-32); CHLORIDE 104 mmol/L (98-107); CREATININE 1.5 mg/dL (0.6-1.3); GLUCOSE 138 mg/dL (74-106); MAGNESIUM 2.1 mg/dL (1.8-2.4); POTASSIUM 4.5 mmol/L (3.5-5.1); SODIUM SERUM 144 mmol/L (136-145); TOTAL PROTEIN, SERUM 6.9 g/dL (6.4-8.2); UREA NITROGEN, BLOOD 28 mg/dL (7-18)
[2023-12-14] MEDS: BUDESONIDE 0.5 MG/2 ML NEBU INH SCH (08:20)
[2023-12-14] MEDS ORDERED: SENNA 8.6 MG TAB PO SCH (09:00)
[2023-12-14] MEDS ORDERED: ENOXAPARIN 30 MG/0.3 ML SYR SUBQ SCH (09:00)
[2023-12-14] MEDS ORDERED: NON-FORMULARY ITEM (Multivitamin (Multi-Vitamins) 1 TAB) PO SCH (09:00)
[2023-12-14] MEDS: MEMANTINE 10 MG TAB PO SCH (10:52)
[2023-12-14] MEDS: MULTIVITAMIN 1 TAB PO SCH (10:52)
[2023-12-14] MEDS: DONEPEZIL 10 MG TAB PO SCH (10:53)
[2023-12-14] MEDS: APIXABAN 2.5 MG TAB PO SCH (10:55)
[2023-12-14 11:29] LABS: TOTAL BILIRUBIN 0.5 mg/dL (0.0-1.0)
[2023-12-14] MEDS: methylPREDNISolone SS 40 MG/ML VIAL IVP SCH (12:27)
[2023-12-14] MEDS: DOXAZOSIN 2 MG TAB PO SCH (21:51)
[2023-12-14] MEDS: SIMVASTATIN 10 MG TAB PO SCH (21:54)
[2023-12-15] VITALS (12 sets, daily range): BP systolic 111–140; BP diastolic 55–91; PULSE 55–98; RESP 14–20; TEMP 97.3–98.9; O2SAT 66–98
[2023-12-15 06:20] LABS: HEMATOCRIT 40.4 % (36-52); HEMOGLOBIN 13.3 g/dL (12.0-18.0); LYMPHOCYTES # (AUTO) 0.6 K/uL (2.0-11.5); LYMPHOCYTES % (AUTO) 3.8 % (20.5-51.1); MEAN CORPUSCULAR HEMOGLOBIN 30 pg (27-31); MEAN CORPUSCULAR HGB CONC 33 g/dL (33-37); MEAN CORPUSCULAR VOLUME 91.3 fL (80-94); MONOCYTES # (AUTO) 0.3 K/uL (0.8-1.0); NEUTROPHILS # (AUTO) 13.9 K/uL (1.8-7.7); NEUTROPHILS % (AUTO) 94.2 % (42.2-75.2); PLATELET COUNT (AUTO) 134 K/uL (140-450); RED BLOOD CELL COUNT(AUTO) 4.42 MIL/uL (4.20-6.10); RED CELL DISTRIBUTION WIDTH 14.1 % (11.6-13.7); WHITE BLOOD COUNT (AUTO) 14.7 K/uL (4.8-10.8)
[2023-12-15 06:40] LABS: ANION GAP 12.3 (8-16); CALCIUM 8.4 mg/dL (8.5-10.1); CHLORIDE 104 mmol/L (98-107); CREATININE 1.3 mg/dL (0.6-1.3); GLUCOSE 123 mg/dL (74-106); POTASSIUM 4.3 mmol/L (3.5-5.1); SODIUM SERUM 142 mmol/L (136-145); UREA NITROGEN, BLOOD 37 mg/dL (7-18)
[2023-12-15] MEDS ORDERED: VANCOMYCIN PER PHARMACY MC PRN (07:15)
[2023-12-15] MEDS: SENNA 8.6 MG TAB PO SCH (09:06)
[2023-12-15] MEDS: ALENDRONATE SODIUM 70 MG TAB PO SCH (09:11)
[2023-12-15] MEDS: VANCOMYCIN 1.25GM PREMIX 250 ML IV SCH (09:32)
[2023-12-15] MEDS: methylPREDNISolone SS 40 MG/ML VIAL IVP SCH (20:47)
[2023-12-16] VITALS (9 sets, daily range): BP systolic 102–137; BP diastolic 60–71; PULSE 60–91; RESP 16–20; TEMP 97.6–98; O2SAT 92–99
[2023-12-16 07:06] LABS: ANION GAP 10.5 (8-16); CARBON DIOXIDE 31.1 mmol/L (21-32); CHLORIDE 106 mmol/L (98-107); CREATININE 1.2 mg/dL (0.6-1.3); GLUCOSE 104 mg/dL (74-106); POTASSIUM 4.6 mmol/L (3.5-5.1); SODIUM SERUM 143 mmol/L (136-145); UREA NITROGEN, BLOOD 36 mg/dL (7-18)
[2023-12-16 07:22] LABS: BASOPHILS % (AUTO) 0.1 % (0.0-2.0); HEMOGLOBIN 13.2 g/dL (12.0-18.0); LYMPHOCYTES # (AUTO) 0.6 K/uL (2.0-11.5); MEAN CORPUSCULAR HEMOGLOBIN 30 pg (27-31); MEAN CORPUSCULAR HGB CONC 33 g/dL (33-37); MEAN CORPUSCULAR VOLUME 92.2 fL (80-94); MONOCYTES # (AUTO) 0.8 K/uL (0.8-1.0); MONOCYTES % (AUTO) 5.2 % (1.7-9.3); NEUTROPHILS # (AUTO) 13.2 K/uL (1.8-7.7); NEUTROPHILS % (AUTO) 90.7 % (42.2-75.2); PLATELET COUNT (AUTO) 126 K/uL (140-450); RED BLOOD CELL COUNT(AUTO) 4.33 MIL/uL (4.20-6.10); RED CELL DISTRIBUTION WIDTH 14.4 % (11.6-13.7); WHITE BLOOD COUNT (AUTO) 14.6 K/uL (4.8-10.8)
[2023-12-16] MEDS ORDERED: SCOPOLAMINE 1.5 MG/72 HR PATCH TD SCH (09:00)
[2023-12-16] MEDS: SCOPOLAMINE 1.5 MG/72 HR PATCH TD SCH (09:02)
[2023-12-16] MEDS: MUPIROCIN CA NASAL 2% 1GM TUBE NS SCH (13:00)
[2023-12-16] MEDS: CHLORHEXADINE GLUC 2% CLOTH TP SCH (13:24)
[2023-12-17] VITALS (7 sets, daily range): BP systolic 116–118; BP diastolic 55–58; PULSE 59–83; RESP 16–18; TEMP 97.9–98.9; O2SAT 90–98
[2023-12-17 06:19] LABS: BASOPHILS % (AUTO) 0.1 % (0.0-2.0); EOSINOPHILS # (AUTO) 0.1 K/uL (0-0.4); EOSINOPHILS % (AUTO) 0.9 % (0.0-4.0); HEMATOCRIT 39.6 % (36-52); HEMOGLOBIN 13.1 g/dL (12.0-18.0); LYMPHOCYTES # (AUTO) 1.4 K/uL (2.0-11.5); LYMPHOCYTES % (AUTO) 10.6 % (20.5-51.1); MEAN CORPUSCULAR HEMOGLOBIN 30 pg (27-31); MEAN CORPUSCULAR HGB CONC 33 g/dL (33-37); MEAN CORPUSCULAR VOLUME 91.6 fL (80-94); MONOCYTES # (AUTO) 1.4 K/uL (0.8-1.0); MONOCYTES % (AUTO) 10.5 % (1.7-9.3); NEUTROPHILS # (AUTO) 10.1 K/uL (1.8-7.7); NEUTROPHILS % (AUTO) 77.9 % (42.2-75.2); PLATELET COUNT (AUTO) 134 K/uL (140-450); RED BLOOD CELL COUNT(AUTO) 4.32 MIL/uL (4.20-6.10); RED CELL DISTRIBUTION WIDTH 14.2 % (11.6-13.7); WHITE BLOOD COUNT (AUTO) 12.9 K/uL (4.8-10.8)
[2023-12-17 06:39] LABS: ANION GAP 7.7 (8-16); CALCIUM 7.7 mg/dL (8.5-10.1); CARBON DIOXIDE 31.9 mmol/L (21-32); CHLORIDE 104 mmol/L (98-107); CREATININE 1.1 mg/dL (0.6-1.3); GLUCOSE 80 mg/dL (74-106); POTASSIUM 3.6 mmol/L (3.5-5.1); SODIUM SERUM 140 mmol/L (136-145); UREA NITROGEN, BLOOD 34 mg/dL (7-18)
[2023-12-17] MEDS: predniSONE 20 MG TAB PO SCH (08:52)
[2023-12-17] MEDS ORDERED: PRED20TA5 PO (10:02)
[2023-12-17] MEDS ORDERED: LEVO-481 PO (10:02)
== END 2023-12-17 18:35 | DRG 189 ==
LOC: MED 18:33 → EEVIPCON 23:04 → MTU 23:04
PROVIDERS: ADMIT Internal Medicine; ATTEND Internal Medicine
DX: J96.01 Acute respiratory failure with hypoxia (principal); J44.1 Chronic obstructive pulmonary disease with (acute) exacerbation; D64.9 Anemia, unspecified; I10 Essential (primary) hypertension; E78.5 Hyperlipidemia, unspecified; E03.9 Hypothyroidism, unspecified; Z79.01 Long term (current) use of anticoagulants; Z79.899 Other long term (current) drug therapy; Z79.51 Long term (current) use of inhaled steroids
CPT/HCPCS: 36415; 36600; 71045; 80048; 80053; 82803; 82948; 83735; 84484; 85025; 87040; 87081; 93005; 94640; 96365; 96372; 96375; 97116; 97163-GP; 99291; J1956; J2920; J2930; J3372; J3490; J7512; J7613; J7626; J7644